=== PATIENT | male | born 1980 | race Caucasian/White ===

== ENCOUNTER 2017-08-30 20:44 | Emergency (ER) | payer OTHER ==
[~2017-08-30 20:44] MED LIST: ISOVUE-370 76%-LOCM 1 ML ONE; Iopamidol 370 76% 50 ML VIAL FS ONE
[2017-08-30 21:50] LABS: #Basophils 0.1 thou/uL (0.0-0.2); #Eosinphils 0.4 thou/uL (0.0-0.7); #Monocytes 1.1 thou/uL (0.11-0.59); #Neutrophils 7.1 thou/uL (1.40-6.50); %Basophils 1.1 % (0.0-1.0); %Eosinophils 3.2 % (0.0-10.0); %Lymphocytes 25.7 % (21.0-51.0); %Monocytes 9.7 % (0.0-10.0); %Neutrophils 60.4 % (42.0-75.0); Hemoglobin 18.4 g/dL (14.0-18.0); Mean Corpuscular HGB CONC 34.7 g/dL (32.0-36.0); Mean Corpuscular Hemoglobin 33.4 pg (27.0-31.0); Mean Corpuscular Volume 96.4 fl (80.0-94.0); Mean Platelet Volume 6.2 fL (7.4-10.4); Platelet Count 263 thou/uL (130-400); White Blood Cell (WBC) Count 11.8 thou/uL (4.8-10.8)
[2017-08-30 22:16] LABS: ALT (SGPT) 67 U/L (8-55); AST (SGOT) 44 U/L (5-34); Albumin 4.8 g/dL (3.5-5.0); Alkaline Phosphatase 112 U/L (40-150); Anion Gap 14 mmol/L (10-20); BUN (Urea Nitrogen) 17 mg/dL (8.9-20.6); Bilirubin, Total 0.6 mg/dL (0.2-1.2); Calc. Creatinine Clearance 0 mL/min (70-130); Calcium 10.4 mg/dL (7.8-10.44); Carbon Dioxide 25 mmol/L (22-29); Chloride 102 mmol/L (98-107); Estimated GFR-MDRD 55; Globulin 3.5 g/dL (2.4-3.5); Glucose 96 mg/dL (70-105); Potassium 4.3 mmol/L (3.5-5.1); Protein, Total 8.3 g/dL (6.0-8.3); Sodium 137 mmol/L (136-145)
[2017-08-30 22:36] LABS: INR-International Normal Ratio 1.1; Prothrombin Time 13.8 SEC (12.0-14.7)
[2017-08-31] MEDS ORDERED: metroNIDAZOLE 250 MG TAB ONE (00:28)
--- NOTE | 2017-08-31 08:01 | CT ---
CT OF THE ABDOMEN AND PELVIS WITH IV CONTRAST: INDICATION: History of colorectal cancer status post colon resection with left lower quadrant abdominal pain and bright red blood coming from colostomy site. FINDINGS: There is postsurgical change of total colectomy. There is a rectal stump seen within the lower pelvi s. There is a right lower quadrant ileostomy. There is no evidence of obstruction. There is mild fatty infiltration of the liver. The spleen is mildly enlarged measuring 14 cm. Lung bases are clear. Adrenal glands, pancreas, and kidneys are normal-appearing. There are mild vascular calcifications involving the abdominal aorta. The prostate, rectum, and perirectal soft tissues are unremarkable. No acute osseous abnormality is evident. There is a lucency involving the right ilium adjacent to th e right SI joint measuring 1.1 cm, nonspecific and may reflect a small fibroosseous lesion. Not enti rely suspicious for a metastatic lesion. IMPRESSION: 1. Total colectomy with establishment of a right lower quadrant ileostomy. The right lower quadrant ileostomy stump does not appear grossly abnormal. There is no evidence of obstruction. 2. Fatty liver. 3. Mild splenomegaly. 4. Well-circumscribed lucency within the right ilium adjacent to the right sacroiliac joint is nonsp ecific but appears to be lesion of low biologic activity. POS: NO
== END 2017-08-31 00:53 ==
LOC: EEVIPCON 20:44 → ERS 20:44
DX: K52.9 Noninfective gastroenteritis and colitis, unspecified (principal); Z85.038 Personal history of other malignant neoplasm of large intestine
CPT/HCPCS: 74177; 80053; 85025; 85610; 85730; 86850; 86900; 86901

== ENCOUNTER 2024-10-10 06:05 | Day surgery (SDC) | payer OTHER ==
[2024-10-07 14:36] VITALS: BMI 25.1
[2024-10-10] MEDS ORDERED: Lidocaine 2% PF 5 ML VIAL ONE (07:08)
[2024-10-10] MEDS ORDERED: PROPOFOL 40 ML ONE (07:08)
[2024-10-10] MEDS ORDERED: Midazolam HCl 2 mg/2 ml Vial ONE (07:11)
[2024-10-10 07:53] LABS: Hematocrit 27.4 % (42.0-52.0); Hemoglobin 6.7 g/dL (14.0-18.0)
[2024-10-10] MEDS ORDERED: Ondansetron PF 4 MG/2 ML Vial ONE (10:04)
== END 2024-10-10 11:35 | disposition home or self-care (01) ==
LOC: SDC 06:05
PROVIDERS: ATTEND Internal Medicine Gastroenterology
PROC: 0DJD8ZZ Inspection of Lower Intestinal Tract, Via Natural or Artificial Opening Endoscopic (ICD-10-PCS; principal; 2024-10-10)
DX: C17.2 Malignant neoplasm of ileum (principal); I10 Essential (primary) hypertension; K92.2 Gastrointestinal hemorrhage, unspecified; F41.9 Anxiety disorder, unspecified; F17.290 Nicotine dependence, other tobacco product, uncomplicated; F12.90 Cannabis use, unspecified, uncomplicated; Z83.710 Family history of adenomatous and serrated polyps; Z88.8 Allergy status to other drugs, medicaments and biological substances; Z90.49 Acquired absence of other specified parts of digestive tract; Z88.5 Allergy status to narcotic agent; Z79.899 Other long term (current) drug therapy
CPT/HCPCS: 36415; 36430; 85014; 85018; 86850; 86900; 86901; J2250; J2405; J2704; P9016